=== PATIENT | female | born 1985 | race Caucasian/White ===

== ENCOUNTER 2021-09-01 12:43 | Emergency (ER) | payer MEDICAID ==
[2021-09-01] MEDS ORDERED: ONDANSETRON ODT 4 MG TABLET ONE (14:15)
[2021-09-01] MEDS ORDERED: HYDROmorphone 1 MG/ML CARPUJECT ONE (14:15)
--- NOTE | 2021-09-02 14:32 | XRAY Report ---
PROCEDURE: Ankle 3 View RT INDICATIONS: HORSE VS FOOT AND ANKLE/ PT STATES A STOMPING INJURY ON HER FOOT WITH PAIN ON THE LATER AL ASPECT OF HER ANKLE TECHNIQUE: 3 views of the ankle were acquired. COMPARISON: None FINDINGS: Bones: No fractures or dislocations. Ankle mortise is normally aligned. No suspicious bony lesions . Soft tissues: No tibiotalar joint effusion. Achilles tendon appears normal. Lateral soft tissue sw elling is noted and ligamentous injury cannot be excluded. IMPRESSION: No fracture. No osseous lesion. If symptoms and/or clinical concern for pathology persis ts, further assessment with repeat plain film radiographs (7-10 days) or advanced imaging (CT, MR, marely ne scan) should be considered. Reviewed by: Karlie Batres MD, PhD on 09/01/2021 1:46 PM PDT Approved by: Karlie Batres MD, PhD on 09/01/2021 1:46 PM PDT Station ID: [id number]
--- NOTE | 2021-09-02 14:32 | XRAY Report ---
PROCEDURE: Foot 3 View RT INDICATIONS: HORSE VS FOOT AND ANKLE/ PT STATES A STOMPING INJURY ON HER FOOT WITH PAIN ON THE LATER AL ASPECT OF HER ANKLE TECHNIQUE: 3 views of the foot were acquired. COMPARISON: None FINDINGS: Bones: No fractures or dislocations. No suspicious bony lesions. Soft tissues: No tibiotalar joint effusion. Achilles tendon appears normal. IMPRESSION: No fracture. No osseous lesion. If symptoms and/or clinical concern for pathology persists, further a ssessment with repeat plain film radiographs (7-10 days) or advanced imaging (CT, MR, bone scan) shou ld be considered. Reviewed by: Karlie Batres MD, PhD on 09/01/2021 1:47 PM PDT Approved by: Karlie Batres MD, PhD on 09/01/2021 1:47 PM PDT Station ID: [id number]
--- NOTE | 2021-09-11 13:43 | ED Physician Documentation ---
PD HPI LOWER EXT INJURY - Stated complaint Stated Complaint: RIGHT ANKLE INJURY - History obtained from History obtained from: Patient - History of Present Illness PD HPI LOW EXT INJURY LOCATION: Right, Ankle Type of injury: Blunt / blow Where injury occurred: [place] Improved by: Rest, Ice, Immobilization Worsened by: Moving, Palpating Associated symptoms: Swelling, Discolored Similar symptoms before: Has not had sx before Recently seen: Not recently seen - Additional information Additional information: 35F hurt right ankle and foot when a horse stepped on her foot and ankle. Review of Systems Constitutional: denies: Fever Respiratory: denies: Cough GI: denies: Vomiting, Diarrhea PD ED PE NORMAL - General General: Alert and oriented X 3, No acute distress, Well developed/nourished - HEENT HEENT: Atraumatic, PERRL, EOMI - Respiratory Respiratory: No respiratory distress - Derm Derm: Normal color, Warm and dry, No rash - Extremities Extremities: Other (swelling and tenderness to the lateral aspect of the right ankle. Tenderness extends to the proximal 5th. Distal n/v intact. 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 No osseous lesion.), EMP read indepedently, See rad report Foot Radiology: Prelim report reviewed (Impression: No fracture no osseous lesion.), EMP read indepedently, See rad report PD MEDICAL DECISION MAKING - ED course Complexity details: reviewed results, re-evaluated patient, considered differential, d/w patient ED course: 35-year-old female who has had a horse stepped on her foot and ankle she has some bruising to the foot and ankle she is having some trouble walking with this and an x-ray is without evidence of fracture. Departure - Departure Disposition: 01 Home, Self Care Clinical Impression: Contusion of ankle, right Qualifiers: Encounter type: initial encounter Qualified Code(s): S90.01XA - Contusion of right ankle, initial encounter Condition: Stable Discharge Date/Time: 09/01/21 14:30
== END 2021-09-01 14:30 | disposition home or self-care (01) ==
LOC: ED 12:43
DX: S90.01XA Contusion of right ankle, initial encounter (principal); W55.19XA Other contact with horse, initial encounter
CPT/HCPCS: 73610; 73630; 96372; 99282; 99283; J1170; Q0162

== ENCOUNTER 2022-09-01 10:32 | Emergency (ER) | payer MEDICAID ==
[2022-09-01 10:41] VITALS: BP 133/98
[2022-09-01] MEDS ORDERED: oxyCODONE 5 MG TABLET PO STA (11:25)
[2022-09-01] MEDS ORDERED: SILVER SULFADIAZINE CREAM 25 GM TUBE TOP STA (11:26)
--- NOTE | 2022-09-01 11:30 | ED Physician Documentation ---
History of Present Illness - Stated complaint Stated Complaint: HAND BURN - Chief complaint Chief Complaint: Burn - History obtained from History obtained from: Patient - History of Present Illness Pain level max: 7 Pain level now: 7 - Additonal information Additional information: Patient is a 36-year-old female who presents to the emergency department stating that she was taking doxycycline for an antibiotic at home. She went out into the sun and developed a sunburn on the back of both of her hands that has now blistered. She states it is not improving with aloe vera at home. No fevers. No chills. Complains of pain to the hands as well. She does have a history of MS. Review of Systems Constitutional: denies: Fever, Chills Musculoskeletal: denies: Neck pain, Back pain Neurologic: denies: Headache PD PAST MEDICAL HISTORY - Past Medical History Past Medical History: Yes Neuro: Multiple sclerosis - Past Surgical History Past Surgical History: No - Present Medications Home Medications: Ambulatory Orders Medication Instructions Recorded Confirmed Oxycodone HCl/Acetaminophen 1 each PO Q6H PRN #10 tablet MDD 6 09/01/22 [Percocet 5-325 mg Tablet] tabs Silver Sulfadiazine Cream 1 applic TOP BID #1 each 09/01/22 [Silvadene Cream] - Allergies Allergies/Adverse Reactions: Allergies Allergy/AdvReac Type Severity Reaction Status Date / Time glatiramer (copolymer 1) Allergy Anaphylaxis Verified 09/01/22 10:42 [From Copaxone] latex Allergy Hives Verified 09/01/22 10:41 NSAIDS (Non-Steroidal Allergy Hives Verified 09/01/22 10:41 Anti-Inflamma - Living Situation Living Situation: reports: With family Living Arrangement: reports: At home - Social History Does the pt have substance abuse?: No - Family History Family history: reports: Non contributory PD ED PE NORMAL - Vitals Vital signs reviewed: Yes - General General: Alert and oriented X 3, No acute distress - HEENT HEENT: Moist mucous membranes - Neck Neck: Supple, no meningeal sign - Derm Derm: Warm and dry - Extremities Extremities: Other (There is erythema to the dorsum of the bilateral hands, does not cross to the palmar aspect. There is slight blistering. Mild warmth. Neurovascularly intact.) - Neuro Neuro: Alert and oriented X 3 - Psych Psych: Normal mood, Normal affect Results - Vitals Vitals: Vital Signs - 24 hr 09/01/22 10:38 Temperature 36.2 C L Heart Rate 123 H Respiratory 20 Rate Blood Pressure 133/98 H O2 Saturation 100 Oxygen O2 Source Room air PD Medical Decision Making - ED course Complexity details: reviewed results, re-evaluated patient, considered differential, d/w patient ED course: Patient with what appears to be partial-thickness stone to the bilateral hands, appears to be consistent with a doxycycline reaction to the sun. She is off the doxycycline now. We will place on Silvadene, performed wound care and have her follow-up with her PCP for further care. We will prescribe a small amount of pain medication for home. The patient does take Dilaudid at home for her MS. No indication for oral antibiotics at this time. No evidence of deep space infection in the hand. We will have her follow-up closely with her PCP for wound checks. Patient counseled regarding signs and symptoms for which I believe and urgent re-evaluation would be necessary. Patient with good understanding of and agreement to plan and is comfortable going home at this time This document was made in part using voice recognition software. While efforts are made to proofread this document, sound alike and grammatical errors may occur. Departure - Departure Disposition: 01 Home, Self Care Clinical Impression: Burn, hands, second degree Qualifiers: Encounter type: initial encounter Burn of hand location: unspecified site Laterality: unspecified laterality Qualified Code(s): T23.209A - Burn of second degree of unspecified hand, unspecified site, initial encounter Condition: Good Instructions: ED Burn D 2nd Follow-Up: your,doctor in 3 days for wound check [Other] Prescriptions: Oxycodone HCl/Acetaminophen [Percocet 5-325 mg Tablet] 1 each PO Q6H PRN #10 tablet MDD 6 tabs PRN Reason: pain Silver Sulfadiazine Cream [Silvadene Cream] 1 applic TOP BID #1 each Comments: Please use the Silvadene cream at home. Please keep your hands covered whenever you are outside. Please follow-up with your doctor for a wound check in 3 to 4 days. Your prescriptions were sent to [facility] in [place]. I am prescribing a short course of narcotic pain medication for you. These are potentially dangerous and addictive medications that should be used carefully. These medications may constipate you. Take an eucj-xhw-rxlddnq stool softener (docusate) twice daily with plenty of water while taking these medications. If you go 24 hours without a bowel movement, take gxji-jnk-vnyixrb miralax, per package instructions. Do not drink or drive while taking these medications. If you received narcotic or sedating medications while in the emergency department, do not drive for 24 hours. Store this medication in a safe, secure place and out of reach of children. It is a violation of federal law to give or sell this medication to another person or to use in a manner other than prescribed. The ED will not refill narcotic prescriptions, including prescriptions lost or stolen. To dispose of unwanted medications: 1. [facility] at [address] in [place] has a medication drop box. They accept prescription medications (in pill form) Monday through Monday 9:00 a.m. to 5:00 p.m. 2. The [facility] accepts prescription medications (in pill form only) for disposal year round. Call for more information. 3. Contact the [facility] for the next COUNTS INCLUDE 234 BEDS AT THE [facility] sponsored prescription drug collection event. , [phone], or [phone]; Discharge Date/Time: 09/01/22 12:34
== END 2022-09-01 12:34 | disposition home or self-care (01) ==
LOC: ED 10:32
DX: T23.209A Burn of second degree of unspecified hand, unspecified site, initial encounter (principal)
CPT/HCPCS: 99282; 99283; A9270

== ENCOUNTER 2022-12-05 17:49 | Emergency (ER) | payer MEDICAID ==
[2022-12-05 18:14] VITALS: O2SAT 100
--- NOTE | 2022-12-05 19:46 | XRAY Report ---
PROCEDURE: Chest 2 View X-Ray INDICATIONS: trauma TECHNIQUE: 2 views of the chest were acquired. COMPARISON: None. FINDINGS: Surgical changes and devices: None. Lungs and pleura: No pleural effusions or pneumothorax. Lungs are clear. Mediastinum: Mediastinal contours appear normal. Heart size is normal. Bones and chest wall: No suspicious bony lesions. Overlying soft tissues appear unremarkable. IMPRESSION: No acute cardiopulmonary process. Reviewed by: Vanessa Armenta MD on 12/05/2022 7:45 PM PDT Approved by: Vanessa Armenta MD on 12/05/2022 7:45 PM PDT Station ID: [id number]
[2022-12-05] MEDS ORDERED: KETOROLAC 30 MG/ML VIAL IM STA (20:05)
--- NOTE | 2022-12-05 20:07 | ED Physician Documentation ---
History of Present Illness - Stated complaint Stated Complaint: RIB INJ - Chief complaint Chief Complaint: Trauma Ch/Bk - History obtained from History obtained from: Patient - Additonal information Additional information: 37-year-old female with history of MS presents for chest wall pain x3 to 4 days. 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 Since then she has had pain over the front of her chest and she states that occasionally when she coughs she has phlegm that is tinged with blood. She is concerned that she may have bruised her lungs or may have a fracture in her chest wall. Has been taking vjcc-tqj-ekaszuk medications at home for pain. Denies shortness of breath Review of Systems Constitutional: denies: Fever, Chills Cardiac: reports: Chest pain / pressure (chest wall). denies: Palpitations, Calf pain Respiratory: denies: Dyspnea, Cough, Wheezing PD PAST MEDICAL HISTORY - Past Medical History Neuro: Multiple sclerosis Musculoskeletal: Other - Past Surgical History Past Surgical History: No - Present Medications Home Medications: Ambulatory Orders Medication Instructions Recorded Confirmed Oxycodone HCl/Acetaminophen 1 each PO Q6H PRN #10 tablet MDD 6 09/01/22 [Percocet 5-325 mg Tablet] tabs Silver Sulfadiazine Cream 1 applic TOP BID #1 each 09/01/22 [Silvadene Cream] - Allergies Allergies/Adverse Reactions: Allergies Allergy/AdvReac Type Severity Reaction Status Date / Time glatiramer (copolymer 1) Allergy Anaphylaxis Verified 12/05/22 18:07 [From Copaxone] latex Allergy Hives Verified 12/05/22 18:07 NSAIDS (Non-Steroidal Allergy Hives Verified 12/05/22 18:07 Anti-Inflamma - Social History Does the pt smoke?: No Smoking Status: Never smoker Does the pt have substance abuse?: No PD ED PE NORMAL - Vitals Vital signs reviewed: Yes - General General: Alert and oriented X 3, No acute distress, Well developed/nourished - HEENT HEENT: Atraumatic - Neck Neck: Supple, no meningeal sign - Cardiac Cardiac: RRR, Strong equal pulses, Other (anterior chest wall tenderness, no crepitus, no bruising, no deformity) - Respiratory Respiratory: No respiratory distress, Clear bilaterally - Abdomen Abdomen: Soft, Non tender, Non distended - Derm Derm: Normal color, Warm and dry, No rash - Extremities Extremities: No deformity, No tenderness to palpate, Normal ROM s pain - Neuro Neuro: Alert and oriented X 3, 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 Saturating well on room air, no deformity or chest wall crepitus. AP and Lateral CXR showed no traumatic findings or underlying lung contusion/abnormality. Patient reassured with normal CXR. I offered an anti- inflammatory shot, which patient accepted. Instructed to continue taking OTC medications for pain and may apply ice as desired for comfort. Departure - Departure Disposition: 01 Home, Self Care Clinical Impression: Chest wall pain Condition: Stable Instructions: ED Contusion Chest Wall Comments: TAKE TYLENOL AND MOTRIN NEEDED FOR PAIN. YOU CAN APPLY ICE NEEDED FOR SWELLING OR PAIN. Forms: PCP List Discharge Date/Time: 12/05/22 20:35
[2022-12-05 20:38] VITALS: BP 124/76
== END 2022-12-05 20:35 | disposition home or self-care (01) ==
LOC: ED 17:49
DX: R07.89 Other chest pain (principal)
CPT/HCPCS: 96372; 99283

== ENCOUNTER 2023-01-15 16:03 | Emergency (ER) | payer MEDICAID ==
[2023-01-15 16:19] VITALS: BP 113/75; O2SAT 99
[2023-01-15] MEDS ORDERED: predniSONE 20 MG TABLET PO STA (16:50)
[2023-01-15] MEDS ORDERED: FAMOTIDINE 20 MG TABLET PO STA (16:50)
--- NOTE | 2023-01-15 16:58 | ED Physician Documentation ---
PD HPI SKIN - Stated complaint Stated Complaint: STUNG/SWELLING - Chief complaint Chief Complaint: Wound - Additional information Additional information: 37-year-old female with a history of MS presents with multiple wasp stings which she sustained about 2 hours prior to arrival while outside. She was stung on both forearms and her buttocks. She was concerned because she had redness and swelling at the bite areas and also felt somewhat nauseous. She had no lip or tongue swelling, no difficulty breathing or difficulty swallowing, no weakness or syncope. She took 75 mg of Benadryl prior to arrival but states that Benadryl typically does not work for her and she often gets a prescription for hydroxyzine. She is periodically on prednisone for her MS, last used about a week ago, not currently on prednisone. She was mainly concerned that she possibly was a developing infection due to redness and swelling of the sting sites. Review of Systems Constitutional: reports: Reviewed and negative Cardiac: reports: Reviewed and negative Respiratory: reports: Reviewed and negative GI: reports: Nausea. 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 - Present Medications Home Medications: Ambulatory Orders Medication Instructions Recorded Confirmed Oxycodone HCl/Acetaminophen 1 each PO Q6H PRN #10 tablet MDD 6 09/01/22 [Percocet 5-325 mg Tablet] tabs Silver Sulfadiazine Cream 1 applic TOP BID #1 each 09/01/22 [Silvadene Cream] Clindamycin [Cleocin] 01/15/23 01/15/23 Ergocalciferol (Vitamin D2) 01/15/23 01/15/23 [Vitamin D2] Famotidine [Acid-Pep] 20 mg PO DAILY #10 tablet 01/15/23 Gabapentin [Neurontin] 01/15/23 Metaxalone 01/15/23 Ofatumumab [Kesimpta Pen] 01/15/23 Ondansetron [Zuplenz] 01/15/23 Venlafaxine [Effexor] 01/15/23 cloNIDine [Catapres] 01/15/23 hydrOXYzine pamoate [Hydroxyzine 50 mg PO Q6H PRN #20 cap 01/15/23 Pamoate] oxyCODONE [Roxicodone] 01/15/23 predniSONE [Deltasone] 40 mg PO DAILY 5 Days #10 tablet 01/15/23 tiZANidine [Zanaflex] 01/15/23 - Allergies Allergies/Adverse Reactions: Allergies Allergy/AdvReac Type Severity Reaction Status Date / Time glatiramer (copolymer 1) Allergy Anaphylaxis Verified 01/15/23 16:11 [From Copaxone] latex Allergy Hives Verified 01/15/23 16:11 NSAIDS (Non-Steroidal Allergy Hives Verified 01/15/23 16:11 Anti-Inflamma - Social History Does the pt smoke?: No Smoking Status: Never smoker Does the pt drink ETOH?: No Does the pt have substance abuse?: No - Immunizations Immunizations are current?: Yes PD ED PE NORMAL - Vitals Vital signs reviewed: Yes - General General: Alert and oriented X 3, No acute distress, Well developed/nourished - HEENT HEENT: Atraumatic, Moist mucous membranes, Pharynx benign - Cardiac Cardiac: RRR, No murmur - Respiratory Respiratory: No respiratory distress, Clear bilaterally - Derm Derm: Normal color, Warm and dry, Other (there are 2 patches of redness on each forearm extending up the forearm, mildly warm to touch, does not appear cellulit ic. No vesicles or pustules.) Results - Vitals Vitals: Vital Signs - 24 hr 01/15/23 16:11 Temperature 37.0 C Heart Rate 90 Respiratory 16 Rate Blood Pressure 113/75 O2 Saturation 99 Oxygen O2 Source Room air PD Medical Decision Making - ED course Complexity details: considered differential, d/w patient, d/w family ED course: 37-year-old female presents after several wasp stings as described in HPI. Arrival here, patient is well-appearing, in no acute distress, breathing comfortably on room air and has no oropharyngeal swelling or signs of anaphylaxis. She does have prominent local reaction to the wasp stings on her forearms and buttocks. I do not suspect infection at this point as symptoms started immediately after the wasp sting and it has only been approximately 2 hours. Patient does have significant local reaction however and I have recommended cool compress, we will prescribe hydroxyzine as Benadryl has not been effective for her and add famotidine for additional histamine blockade. She will also receive a short course of steroids for the next 5 days. She has been monitored here and has not had any progression in her symptoms, has remained stable therefore I do think she is stable for discharge home, return precautions reviewed in detail with the patient and her partner. Departure - Departure Disposition: Home, Self Care Clinical Impression: Wasp sting Qualifiers: Encounter type: initial encounter Injury intent: accidental or unintentional Qualified Code(s): T63.461A - Toxic effect of venom of wasps, accidental (unintentional), initial encounter Condition: Good Instructions: ED Bite Sting Insect Local Allergic React Prescriptions: Famotidine [Acid-Pep] 20 mg PO DAILY #10 tablet predniSONE [Deltasone] 40 mg PO DAILY 5 Days #10 tablet hydrOXYzine pamoate [Hydroxyzine Pamoate] 50 mg PO Q6H PRN #20 cap PRN Reason: itching, allergy Comments: Use cool compress to the stings and you can take tylenol. I will also give you 5 days of steroids and you can take Hydroxyzine as needed rather than benadryl since that doesn't tend to work for you. I have also given you Famotidine which is a medication that blocks histamine #2 to help reduce allergy response. Return if you develop a fever or signs of infection, shortness of breath, or tongue/lip swelling. Medication sent to [facility]. Forms: PCP List
== END 2023-01-15 17:33 | disposition home or self-care (01) ==
LOC: ED 16:03
DX: T63.461A Toxic effect of venom of wasps, accidental (unintentional), initial encounter (principal); R22.33 Localized swelling, mass and lump, upper limb, bilateral; R22.2 Localized swelling, mass and lump, trunk; L53.9 Erythematous condition, unspecified; R11.0 Nausea
CPT/HCPCS: 99282; 99283; A9270; J7512